=== PATIENT | female | born 1965 | race Caucasian/White ===

== ENCOUNTER 2024-10-27 13:45 | Outpatient (CLI) | payer BC, SELFPAY ==
--- NOTE | ~2024-10-27 | XR_ITS ---
AP and lateral views of the sacrum/coccyx CLINICAL HISTORY: Coccydynia FINDINGS: No acute fracture or dislocation seen. Joint spaces at the hips appear intact. There is adv anced facet arthropathy the visualized lower lumbar spine. Soft tissues are unremarkable. IMPRESSION: No acute abnormality seen. Extensive facet arthropathy of the visualized lower lumbar spine. Reviewed, dictated and finalized at location .
== END 2024-10-27 13:46 | disposition home or self-care (01) ==
DX: M53.3 Sacrococcygeal disorders, not elsewhere classified (principal)
CPT/HCPCS: 72220